=== PATIENT | male | born 1950 | race Caucasian/White ===

== ENCOUNTER → 2018-01-27 | Outpatient (CLI) | payer MEDICARE, MEDICAID ==
--- NOTE | 2018-01-27 10:08 | RADIOLOGY REPORT (SQ) ---
EXAM DESCRIPTION: MRI LUMBAR SPINE WITHOUT COMPLETED DATE/TIME: 01/27/2018 9:40 am REASON FOR STUDY: L-2 COMPRESSION FX/BACK PAIN M81.0 AGE-RELATED OSTEOPOROSIS W/O CURRENT PATHOLOGI PAM FRAC S32.000S WEDGE COMPRESSION FRACTURE OF UNSP LUMBAR VERTEBRA, COMPARISON: None. TECHNIQUE: Sagittal and Axial imaging includes T1, T2, STIR and gradient echo sequences. Coronal T2/ HASTE imaging. LIMITATIONS: None. FINDINGS: VISUALIZED UPPER ABDOMEN: Limited evaluation. No acute or suspicious findings suggested. SEGMENTATION: No transitional anatomy. The lowest well-developed disc space is labeled L5-S1. ALIGNMENT: Anatomic. VERTEBRAE: Anterior wedge compression fracture of the L1 vertebral body with greater than 50% loss of height. Mild marrow edema. BONE MARROW: No marrow replacement. Mild marrow edema in the L1 vertebral body. DISC SIGNAL: Decreased height and signal. POSTERIOR ELEMENTS: Generally intact. No pars defect evident. HARDWARE: None in the spine. CORD AND CONUS: Normal in size and signal intensity. Conus at the appropriate level. SOFT TISSUES: No aortic aneurysm seen. No bulky retroperitoneal adenopathy or mass. No paraspinal mas s or fluid. L1-L2: No significant spinal stenosis or exit foraminal stenosis. L2-L3: Mild diffuse posterior annular disc bulge. Mild facet arthropathy. No significant central sp inal stenosis. Mild to moderate left lateral recess stenosis and left exit foraminal stenosis. L3-L4: Diffuse posterior annular disc bulge. Moderate facet arthropathy. Mild spinal stenosis and m oderate bilateral lateral recess stenosis and exit foraminal stenosis. L4-L5: Minimal diffuse posterior disc bulge. Mild facet arthropathy. No significant spinal stenosis . Mild exit foraminal stenosis. L5-S1: No significant spinal stenosis or exit foraminal stenosis. LOWER THORACIC: Incompletely imaged. No stenosis seen. SACRUM: Visualized upper sacrum intact. OTHER: No other significant findings. IMPRESSION: 1. ANTERIOR WEDGE COMPRESSION FRACTURE OF THE L1 VERTEBRAL BODY WITH GREATER THAN 50% LOSS OF HEIGHT. MILD MARROW EDEMA. NO INVOLVEMENT OF THE BACKWALL OR ENCROACHMENT OF THE SPINAL CANAL. 2. MULTILEVEL CHRONIC DEGENERATIVE CHANGES IN THE LUMBAR SPINE DESCRIBED ABOVE. TECHNICAL DOCUMENTATION: JOB ID: [id number] [email or web address]- All Rights Reserved Reading location - IP/workstation name: [facility]
--- NOTE | 2018-01-27 10:34 | WOMENS IMAGING REPORT ---
EXAM DESCRIPTION: BONE DENSITY HIP/SPINE COMPLETED DATE/TIME: 01/27/2018 9:04 am REASON FOR STUDY: M81.0 M81.0 AGE-RELATED OSTEOPOROSIS W/O CURRENT PATHOLOGICAL FRAC S32.000S WEDG E COMPRESSION FRACTURE OF UNSP LUMBAR VERTEBRA, COMPARISON: None. TECHNIQUE: Dual-Energy X-ray Absorptiometry (DEXA) of the AP Spine and Hip. LIMITATIONS: None. FINDINGS: LUMBAR SPINE: The bone mineral density (BMD) measured from L1-L4 in the AP projection correlates with a T-score of -3.0, which is osteoporosis as defined by the World Health Organization. HIP: The bone mineral density (BMD) measured in the left hip correlates with a T-score of -2.9, which is o steoporosis as defined by the World Health Organization. IMPRESSION: 1. LUMBAR SPINE: OSTEOPOROSIS. 2. HIP: OSTEOPOROSIS. COMMENT: The World Health Organization defines low BMD as follows: T-score: Normal: Greater than -1.0 Osteopenia: Between -1.0 and -2.5 Osteoporosis: Less than -2.5 without fractures Established osteoporosis: Less than -2.5 with fractures In general, you may wish to consider: Diagnosis Treatment Follow-up DEXA Normal BMD Prevention 2-3 years Osteopenia Prevention/Therapy 1-2 years Osteoporosis Therapy Yearly TECHNICAL DOCUMENTATION: JOB ID: [id number]- All Rights Reserved Reading location - IP/workstation name: [facility]
== END ==
LOC: WI 08:13
PROVIDERS: ATTEND Family Medicine
DX: M81.0 Age-related osteoporosis without current pathological fracture (principal); S32.000S Wedge compression fracture of unspecified lumbar vertebra, sequela; X58.XXXS Exposure to other specified factors, sequela
CPT/HCPCS: 72148; 77080